=== PATIENT | female | born 1950 | race Caucasian/White ===

== ENCOUNTER 2017-07-16 13:20 | Day surgery (SDC) | payer MEDICARE, OTHER ==
[~2017-07-16] VITALS: Ht 152.4 cm; Wt 97.4 kg
[~2017-07-16 13:20] MED LIST: ATOR20TA38 PO; FURO20TA3 PO; INSU100C SC; INSU100I14 SC; LANS30CA47 PO; LANT3I SC; MAGN400T27 PO; METO10TA92 PO; NIFE30TA8 PO; POTA20PA10 PO; RIVA20TA PO; SYN1 PO
[2017-07-16] MEDS ORDERED: LIRA0.6P SQ (14:20)
[2017-07-16] MEDS ORDERED: ISOS30TA5 PO (14:21)
[2017-07-16] MEDS ORDERED: CARV3.1260 PO (14:21)
[2017-07-16] MEDS ORDERED: SPIR100T31 PO (14:23)
[2017-07-16] MEDS ORDERED: LEVO75TA65 PO (14:23)
[2017-07-16] MEDS ORDERED: INSU200I SQ (14:25)
[2017-07-16] MEDS ORDERED: HYDR100T25 PO (14:26)
[2017-07-16] MEDS ORDERED: SOD CHLORIDE 0.9% 1,000 ML IV ONE (14:30)
[2017-07-16 14:48] VITALS: BP 136/63; PULSE 53; RESP 16
== END 2017-07-16 18:17 | disposition home or self-care (01) ==
LOC: SDS 13:20
PROVIDERS: ATTEND Thoracic Surgery (Cardiothoracic Vascular Surgery)
DX: R60.0 Localized edema (principal); Z53.9 Procedure and treatment not carried out, unspecified reason
CPT/HCPCS: 80053; 81001; 82962; 85025; 85610; 85730

== ENCOUNTER 2018-04-03 17:46 | Inpatient (IN) | END 2018-04-10 15:15 | disposition home health service (06) | DRG 242 ==

== ENCOUNTER 2018-04-11 10:54 | Emergency (ER) | END 2018-04-11 13:26 | disposition home or self-care (01) ==